=== PATIENT | female | born 1975 | race Caucasian/White ===

== ENCOUNTER → 2017-06-29 16:44 | Outpatient (CLI) | payer MEDICAID ==
[2015-03-20 05:43] VITALS: BMI 23.9
[~2017-06-29 16:44] MED LIST: HEPARIN SO1000 UNIT/ SC; IBUPROFEN600 MG PO; PERCOCET 5-3251 TAB PO; PRENAVITE1 TAB PO
== END | disposition home or self-care (01) ==
LOC: D.MAMMO 13:00
DX: Z12.31 Encounter for screening mammogram for malignant neoplasm of breast (principal)

== ENCOUNTER → 2017-08-04 16:34 | Outpatient (CLI) | payer MEDICAID ==
[2015-03-20 05:43] VITALS: BMI 23.9
== END | disposition home or self-care (01) ==
LOC: D.MAMMO 13:30
DX: R92.8 Other abnormal and inconclusive findings on diagnostic imaging of breast (principal)

== ENCOUNTER 2019-05-29 19:00 | Outpatient (CLI) | payer MEDICAID ==
[2015-03-20 05:43] VITALS: BMI 23.9
== END 2019-05-29 23:59 | disposition home or self-care (01) ==
LOC: D.MAMMO 19:00
PROVIDERS: ATTEND Nurse Practitioner Women's Health
DX: Z12.31 Encounter for screening mammogram for malignant neoplasm of breast (principal)